=== PATIENT | female | born 1960 | race Caucasian/White ===

== ENCOUNTER → 2016-05-31 | Outpatient (CLI) | payer BC ==
[~2016-05-31] MED LIST: B-COCAP2 PO; CALCTAB5 PO; DRGTP100 TD; ESTROGEN; LRT5 PO; MNC50 PO; MULT-506 PO; TRAZ100T29 PO
== END | disposition home or self-care (01) ==
LOC: C.RDSM 15:00
PROVIDERS: ATTEND Physical Medicine & Rehabilitation Sports Medicine
DX: M25.551 Pain in right hip (principal)

== ENCOUNTER → 2016-06-07 | Outpatient (CLI) | payer BC ==
[~2016-06-07] MED LIST changes: +MAGNEVIST IV PRN
--- NOTE | 2016-06-07 12:07 | DIAGNOSTIC IMAGING REPORT ---
FLUOROSCOPIC GUIDED RIGHT HIP ARTHROGRAM FLUOROSCOPY TIME: 5 seconds. HISTORY: Right hip pain.. PROCEDURE: After obtaining written informed consent, the patient was placed supine on the fluoroscopy table. A suitable site for needle insertion was marked using fluoroscopic guidance. The right hip was prepped and draped in the usual sterile fashion. 1% lidocaine was used for skin, subcutaneous and deep soft tissue anesthesia. Under intermittent fluoroscopic guidance, a 22 gauge 3.5 inch spinal needle was inserted into the right hip joint. A total of 12 cc of one-to-one mixture of dilute Magnevist (0.1 cc in 10 cc saline) and Optiray 300 were injected. The needle was then removed. There were no apparent complications. The patient was transported to for further imaging. IMPRESSION: Fluoroscopic-guided right hip arthrogram without immediate complication. Total injected volume was 12 cc. MR portion of the examination will be dictated separately. Electronically signed by: Reece Cole M.D. 06/07/2016 12:06 PM Dictated Date/Time: 06/07/2016 12:04 PM
--- NOTE | 2016-06-07 12:30 | DIAGNOSTIC IMAGING REPORT ---
RIGHT HIP MRI with INTRA-ARTICULAR CONTRAST HISTORY: RIGHT HIP PAIN Right TECHNIQUE: Multiplanar multisequence MRI of the right hip was performed following the intra-articular injection of contrast. COMPARISON STUDY: None. FINDINGS: No fracture or dislocation within the right hip. There is focal area of full-thickness cartilage loss seen within the superolateral aspect of the acetabulum measuring up to 1.4 cm. There is also focal full-thickness cartilage loss within the superior aspect of the femoral head. Remaining portions of the hip cartilage spaces demonstrate approximately 50% thinning with a few small fissures. Marginal osteophytes inferiorly at the femoral head and acetabulum. There is subchondral cystic change and edema at the superior aspect of the acetabulum and femoral head. These findings are consistent with moderate to severe osteoarthritis. The posterior labrum appears intact. However, the superior, anterior, and inferior labrum is torn and partially macerated. Mild edema and the distal attachment of the gluteus medius tendon consistent with a mild tendinopathy. IMPRESSION: 1. Moderate to severe osteoarthritis within the right hip as described above. 2. The majority of the labrum is torn and partially macerated. 3. Mild gluteus medius tendinopathy. Electronically signed by: Reece Cole M.D. 06/07/2016 12:29 PM Dictated Date/Time: 06/07/2016 12:24 PM
== END | disposition home or self-care (01) ==
LOC: C.MRIBC 10:46
PROVIDERS: ATTEND Physical Medicine & Rehabilitation Sports Medicine
DX: M25.551 Pain in right hip (principal)

== ENCOUNTER → 2017-04-13 | Day surgery (SDC) | payer OTHER ==
[2017-03-28 09:33] VITALS: Ht 171.5 cm; Wt 61.4 kg
[~2017-04-13] VITALS: Ht 171.5 cm; Wt 61.4 kg
[~2017-04-13] MED LIST changes: -B-COCAP2 PO; +B-COTAB18 PO; +BUPIVACAINE 0.25% 2.5MG/ML PF 10 ML VIAL ONE; +CALC-393 PO; -CALCTAB5 PO; +CHOL1000 PO; -DRGTP100 TD; +DRGTP100 TOP; +EPP3/2 IM; -ESTROGEN; +HYDR-5688 PO; +IOPAMIDOL INJ 61% 15 ML VIAL ONE; +LIDOCAINE HCL 1% MPF 5 ML VIAL ONE; -LRT5 PO; +MAGN400T6 PO; -MAGNEVIST IV PRN; +MINO0.1C2 PO; -MNC50 PO; +NAPR-1169 PO; +OMEG10007 PO; +SUMA6KIT2 SQ; -TRAZ100T29 PO
--- NOTE | 2017-04-13 13:25 | History & Physical Bridge - [place] ---
H&P Re-Evaluation Bridge Note: I have examined the patient, reviewed the History & Physical and in the interval since the performance of the History & Physical I have noted the following changes of clinical significance: No changes noted
[2017-04-13 13:45] VITALS: TEMP 36.5
--- NOTE | 2017-04-13 13:51 | Discharge Instructions ---
Discharge Instructions Date of Service Apr 13, 2017. Visit Reason for Visit: Sacroiliitis Discharge Discharge Diagnosis / Problem: low back pain Discharge Goals Goal(s): Decrease discomfort, Improve function Activity Recommendations Activity Limitations: resume your previous activity Anesthesia . Post Anesthesia Instructions: If you have had General Anesthesia or IV Sedation: * Do not drive today. * Resume driving when surgeon permits. * Do not make important decisions or sign legal documents today. * Call surgeon for: 1. Temperature elevations greater than 101 degrees F. 2. Uncontrollable pain. 3. Excessive bleeding. 4. Persistent nausea and vomiting. 5. Medication intolerance (nausea, vomiting or rash). * For nausea and vomiting use only clear liquids such as: tea, soda, bouillon until nausea subsides, then gradually increase diet as tolerated. * If you have any concerns or questions, call your surgeon's office. If physician is unavailable and it is an emergency, call 911 or go to the nearest emergency room. . Diet Recommendations Recommended Home Diet: resume previous diet Procedures Procedures Performed: Right Sacroiliac Joint Injection Pending Studies Studies pending at discharge: no Medical Emergencies . Who to Call and When: Medical Emergencies: If at any time you feel your situation is an emergency, please call 911 immediately. . Non-Emergent Contact Non-Emergency issues call your: Specialist . . "Provider Documentation" section prepared by Edi Jones. .
[2017-04-13 13:58] VITALS: BP 110/68; PULSE 85; O2SAT 100
--- NOTE | 2017-04-13 14:34 | OPERATIVE REPORT ---
DATE OF OPERATION: 04/13/2017 PREOPERATIVE DIAGNOSIS: Right sacroiliitis, underlying ankylosing spondylitis. POSTOPERATIVE DIAGNOSIS: Same. PROCEDURE: Right sacroiliac joint injection under fluoroscopic guidance. SURGEON: Dr. Edi Jones. INDICATIONS: The patient is a 56-year-old white female who has sacroiliitis secondary to underlying ankylosing spondylitis. She presents today for an SI joint injection to provide her with relief of her inflammatory sacroiliitis. PHYSICAL EXAMINATION: GENERAL: Pleasant female seated comfortably. MUSCULOSKELETAL: Lumbar paraspinal muscles were palpated and noted be nontender. She had tenderness to palpation of her right SI joint, positive Kayode maneuver was noted. She had normal motor and sensory exam of her lower extremity. CONSENT: Verbal and written consent was obtained from the patient. Risks and benefits were reviewed. Risks include but are not limited to abscess and allergic reaction. The patient wishes to proceed. PROCEDURE: The patient was taken back to the special procedures room of the [facility] where she was maintained in a prone position. Backside was cleansed with Betadine x3 and a dry sterile dressing was applied. Fluoroscope was used to identify the right SI joint. The overlying skin was anesthetized with 2.5 mL of lidocaine 1% with a 25 gauge 1.5-inch needle. A 25 gauge 3.5 inch spinal needle was then directed down towards the joint. She then underwent injection after negative aspiration of 0.25 mL of Isovue 300 contrast which demonstrated intraarticular uptake. This was then followed by injection after negative aspiration of 40 mg of Depo-Medrol and 1.5 mL of bupivacaine 0.25%. Injection was well tolerated. DISPOSITION: 1. The patient is taken out into the discharge recovery area where she will be discharged home once discharge criteria have been met. 2. Follow up in the [facility] office in 2-4 weeks. I attest to the content of the Intraoperative Record and any orders documented therein. Any exception s are noted below.
== END | disposition home or self-care (01) ==
LOC: X.SURG 12:41
PROVIDERS: ATTEND Physical Medicine & Rehabilitation
DX: M46.1 Sacroiliitis, not elsewhere classified (principal)

== ENCOUNTER 2018-08-23 05:06 | Inpatient (IN) ==
--- NOTE | 2018-07-23 11:03 | Anesthesiology Consultation ---
Date of Service July 23, 2018 Assessment & Plan (1) Encounter for pre-operative examination: - S/P Right MOUNIKA= 12/26/17= SAB x 2 attempts (L3-L4) at [facility] Chart Review Chart Review: Acceptable Risk for Surgery and Patient NOT seen in Pre Admission Testing History Surgery Operation Date: 08/23/18 09:20 Proposed Procedures p Left Total Hip Replacement - Brendan Jc MD Height/Weight Height: 5 ft 6 in Weight: 58.967 kg Allergies Allergy/AdvReac Type Severity Reaction Status Date / Time bee venom protein (honey bee) Allergy Severe Swelling Verified 07/06/18 11:14 of Lip/Tongue/Throat cat dander Allergy Unknown Watery Eye Verified 07/06/18 11:14 No Known Drug Allergies Allergy Unknown Verified 07/06/18 11:14 Medications Home Medications Medication Instructions Recorded Confirmed Last Taken cholecalciferol (vitamin D3) 1,000 unit PO QAM 12/08/17 07/06/18 12/25/17 09:00 [Vitamin D3] epinephrine [EpiPen] 0.3 mg IM UD PRN 12/08/17 07/06/18 Unknown fentanyl 1 patch TRANSDERMAL Q72H 12/08/17 07/06/18 12/26/17 03:00 magnesium 400 mg PO QAM 12/08/17 07/06/18 12/25/17 09:00 minocycline 50 mg PO BID 12/08/17 07/06/18 12/25/17 09:00 multivitamin [Multiple Vitamins] 1 tab PO QAM 12/08/17 07/06/18 12/25/17 09:00 naproxen 2 tab PO UD PRN 12/08/17 07/06/18 12/12/17 09:00 omega 5-wwy-daa-fish oil [Fish Oil] 1,400 mg PO QAM 12/08/17 07/06/18 12/12/17 09:00 vitamin B complex 1 cap PO QAM 12/08/17 07/06/18 12/25/17 09:00 calcium carbonate-vitamin D3 1 cap PO BID 07/06/18 07/06/18 Unknown [Calcium 600 + D(3)] cyclobenzaprine 10 mg PO TID PRN 07/06/18 07/06/18 Unknown sumatriptan succinate [Imitrex] 1 dose SUBCUT UD PRN 07/06/18 07/06/18 Unknown Past Medical History Medical History Scoliosis "MILD" Acne ON MINOCYCLINE Chronic back pain Degenerative disc disease History of hypotension NO RECENT ISSUES Lesion of bone of right lower leg RIGHT FEMUR (BEING MONITORED BY ORTHO ONCOLOGIST) Migraine Osteoarthritis Rheumatoid arthritis Past Surgical History Surgical History History of adenoidectomy History of bilateral tubal ligation History of colonoscopy History of dilatation and curettage History of tonsillectomy History of tooth extraction History of total hip arthroplasty RT Past Anesthesia History slow to wake" with one episode (tubal ligation)- no known history of reintubation. Social History Smoking Status: Former smoker tobacco type: cigarettes Smoking End Date: QUIT 1987; <1 PPD X 5 YEARS Hx Alcohol Use: Yes Alcohol type: hard liquor alcohol intake frequency: a few times a week Hx Substance Use: No substance use type: does not use Testing Electrocardiogram Date: 11/28/17 SR with occasional PVCs at 76bpm Chest X-Ray Date: 11/28/17 Findings: + NAD lumbar spine convex. moderate stool. Cervical Spine Date: 11/28/17 No fracture or subluxation in cervical spine. Degenerative disc change noted. No evidence positional subluxation. Laboratory Results Blood Type A Positive 07/23/18 08:53 Antibody Screen NEGATIVE 07/23/18 08:53 07/23/18 WBC 3.93 (surgeon aware) H/H 13.8/41.2 PLATELETS 268 SODIUM 140 POTASSIUM 3.8 CHLORIDE 106 CO2 29 BUN 17 CREATININE 0.75 GLUCOSE 94 PT 10.7 PTT 25.9 INR 1.0 TYPE AND SCREEN A+Ab-
--- NOTE | 2018-08-16 23:26 | History and Physical Report ---
DATE OF ADMISSION: 08/23/2018 CHIEF COMPLAINT: Persistent left hip pain. HISTORY OF PRESENT ILLNESS: The patient is a 58-year-old female normally pretty active, but been debilitated by some back and hip problems for the past several years. She is now about 9 months out from right hip replacements done well from this. She has become more and more limited by left hip pain that has gradually gotten worse even over the past 6 months. She does take chronic narcotics and using a fentanyl patch due to some chronic back issues. She takes 2-4 tablets a day. The pain in her left hip has become more debilitating and she has been able to become more active with a right hip replacement. She describes groin pain and thigh pain. The more she walks, the more it hurts. She has nighttime pain. She has difficulty putting her shoes and socks on. She would like to have her left hip replaced. PAST MEDICAL HISTORY: 1. Chronic back pain, on fentanyl as well as hydrocodone. 2. History of skin cancer. 3. Heart murmur. PAST SURGICAL HISTORY: 1. Right hip replacement on 12/26/2017. 2. Tubal ligation. 3. Tonsillectomy. ALLERGIES: BEE STINGS. CURRENT MEDICINES: Include: 1. Fentanyl patch. 2. Hydrocodone 2-4 tablets a day. 3. Imitrex. 4. Minocycline. 5. Fish oil. 6. Calcium. 7. Vitamin D3. 8. B complex. 9. Magnesium. 10. Multivitamin. 11. NSAIDs intermittently. SOCIAL HISTORY: A 58-year-old female. Patient is . Only drinks per week. Does not smoke. FAMILY HISTORY: Significant heart disease. REVIEW OF SYSTEMS: Significant for chronic back pain. Denies any chest pain or shortness of breath. No history of DVT or PE. No known bleeding problems. PHYSICAL EXAMINATION: GENERAL: Pleasant thin, middle-aged female who looks to be in pretty good health. HEENT: Benign. NECK: Supple. No lymphadenopathy. LUNGS: Clear to auscultation. HEART: Regular rate and rhythm. ABDOMEN: Soft, nontender, nondistended. EXTREMITIES: Grossly neurovascularly intact except as follows: Examination of both hips reveal patient walks with slightly antalgic gait. Examination of the right hip reveals a well-healed incision. She has no pain with hip motion. She is neurologically intact. Examination of left hip reveals about 0.5 cm short in left side compared to the right. She walks with a bit of a limp. She can internally rotate to about 10 degrees. She has pain with this. Negative straight leg raise. She is neurologically intact. X-RAYS: X-ray of the left hip were reviewed. Shows advanced left hip DJD. She has cystic change of the femoral head and acetabulum. This has progressed significantly on x-ray over the past 6 months. The right hip replacement looks to be in good position. ASSESSMENT: A 58-year-old white female 9 months out from right hip replacement with advanced left hip degenerative joint disease that has gotten worse over the past 6 months. She has failed conservative treatment and would like to have her left hip replaced. She does have chronic back pain and on narcotics for that. PLAN: We will take her to the operating room and do a left total hip replacement. The risks and benefits of this procedure were explained to the patient including but not limited to DVT, PE, , infection, neurological injury, vascular injury, bleeding problem, pain, limited range of motion, stiffness, failure to relieve symptoms, incomplete relief of symptoms, need for further surgery in the future, fracture, leg length inequality, nerve palsy, persistent pain, dislocation, need for revision surgery, incomplete relief of symptoms, etc. The patient understands and desires to proceed. Informed consent was obtained. We will have to use her fentanyl patch postoperatively and write her a script for oxycodone and eventually hydrocodone after that. She did pretty well on that protocol last time. We will do the best we can to make her leg lengths equal. She is going to be discharged to home with [facility] home health program.
[2018-08-23] MEDS ORDERED: LR 60ML/HR IV SCH (06:00)
[2018-08-23] MEDS ORDERED: FAMOTIDINE 20 MG TAB PO SCH (06:00)
[2018-08-23] MEDS ORDERED: LR 500ML BOLUS, THEN 15ML/HR IV SCH (06:00)
[2018-08-23] MEDS ORDERED: CEFAZOLIN 2000MG 2,000 MG/15 ML SYR IV SCH (06:00)
[2018-08-23] MEDS ORDERED: GABAPENTIN 300 MG x 2 PO SCH (06:00)
[2018-08-23] MEDS ORDERED: OXYCODONE HCL 10 MG TABCR (OXYCONTIN) PO SCH (06:00)
[2018-08-23] MEDS ORDERED: ACETAMINOPHEN 500 MG TAB PO SCH (06:00)
[2018-08-23] MEDS ORDERED: TRANEXAMIC ACID 1,000 MG **IV Pre-op IV SCH (06:00)
[2018-08-23] MEDS ORDERED: SCOPOLAMINE 1.5 MG TDSY TD SCH (06:00)
[2018-08-23] MEDS ORDERED: METOCLOPRAMIDE HCL 10 MG TABLET PO SCH (06:00)
[2018-08-23] MEDS ORDERED: BUPIVACAINE 0.5 % 5 MG/1 ML PF 10ML VIAL ONE (06:28)
[2018-08-23] MEDS ORDERED: BACITRACIN INJ 50,000 UNIT VIAL ONE (06:35)
[2018-08-23] MEDS ORDERED: BUPIVACAINE/EPINEPHRINE 0.5% MPF 1:200,000 30 ML VIAL ONE (06:35)
[2018-08-23] MEDS ORDERED: MIDAZOLAM HCL 1 MG/ML 2ML VIAL ONE ×3 (06:42→07:33)
[2018-08-23] MEDS ORDERED: PROPOFOL IV EMULSION 10 MG/ML 20 ML VIAL IV ONE (06:42)
[2018-08-23] MEDS ORDERED: LIDOCAINE HCL 2% 2 ML VIAL/AMP(20MG/ML) INFIL ONE (06:42)
[2018-08-23] MEDS ORDERED: MoRPHine SULFATE PF 1 MG/ML 10 ML AMP/VIAL ONE (06:43)
--- NOTE | 2018-08-23 06:52 | History & Physical Bridge Note ---
Date of Service August 23, 2018 History & Physical Bridge Note I have examined the patient, reviewed the History & Physical and in the interval since the performance of the History & Physical I have noted the following changes of clinical significance: no changes noted
[2018-08-23] MEDS ORDERED: PHENYLEPHRINE 100MCG/ML 5ML SYR ONE (07:13)
[2018-08-23] MEDS ORDERED: PHENYLEPHRINE HCL 10 MG/ML VIAL ONE (07:41)
--- NOTE | 2018-08-23 08:20 | Post Operative Brief Note ---
Immediate Post Op Note v1 Date of Surgery August 23, 2018 Pre & Post Diagnosis Operation Date: 08/23/18 07:00 Pre-Op Diagnosis: Left Hip Degenerative Joint Disease Post-Op Diagnosis: Left Hip Degenerative Joint Disease Procedure Operation Date: 08/23/18 07:00 Actual Procedures p Left Total Hip Arthroplasty--Uncemented(Left) - Brendan Jc MD Surgeon Brendan Jc MD Textile Knitter Obi, PAC Estimated Blood Loss 200 Findings Consistent with Post-Op Diagnosis Fluids 1200 cc Specimens Left Femoral Head Drains Mcfarland Catheter Anesthesia Type Spinal MAC Complications none Disposition Accompanied Patient To Recovery: Yes Disposition: Recovery Room
--- NOTE | 2018-08-23 09:16 | XRay Report ---
AP PELVIS, CROSSTABLE LATERAL LEFT HIP History: Left total hip arthroplasty. Degenerative arthritis. Postop. FINDINGS: The patient is status post a left total hip arthroplasty. The hardware is intact. No fractu re or dislocation. Skin mikie are in place. Prior right total hip arthroplasty. IMPRESSION: Left total hip arthroplasty. No evidence for hardware complication. Electronically signed by: Reece Cole M.D. 08/23/2018 9:15 AM
[2018-08-23] MEDS ORDERED: NALOXONE HCL 1 MG in SODIUM CHLORIDE 0.9% 1000ML 1,000 ML IV PRN (10:07)
[2018-08-23] MEDS ORDERED: NALBUPHINE HCL INJ 10 MG/ML AMP IV PRN (10:07)
[2018-08-23] MEDS ORDERED: DiphenhydrAMINE HCL 50 MG/ML VIAL IV PRN (10:07)
[2018-08-23] MEDS ORDERED: HYDROmorphone INJ 0.5 MG/0.5 ML SYR IV PRN (10:07)
[2018-08-23] MEDS ORDERED: MoRPHine SULFATE 2 MG/ML CARP IV PRN (10:07)
[2018-08-23] MEDS ORDERED: ePHEDrine sulfate 50 MG/ML AMP IV PRN (10:07)
[2018-08-23] MEDS ORDERED: NALOXONE HCL 0.08 MG in SYRINGE 1.8 ML IV PRN (10:07)
[2018-08-23] MEDS ORDERED: NALOXONE HCL 0.4 MG/1 ML VIAL/CARP IV PRN ×2 (10:07→10:23)
[2018-08-23] MEDS ORDERED: LACTATED RINGER'S 500 ML IV PRN (10:07)
[2018-08-23] MEDS ORDERED: MEPERIDINE HCL 25 MG/ML CARP IV PRN (10:07)
[2018-08-23] MEDS ORDERED: MoRPHine SULFATE PF 1 MG/ML 10 ML AMP/VIAL INT SPINAL ONE (10:07)
--- NOTE | 2018-08-23 10:09 | Anesthesiology Progress Note ---
Date of Service August 23, 2018 Anesthesia Post Procedure Vital Signs Vital Signs: Temp Pulse Pulse Resp BP Pulse Ox 08/23/18 10:00 36.4 C L 72 19 92/53 L 99 08/23/18 09:50 67 12 93/54 L 100 08/23/18 09:40 69 17 90/54 L 100 08/23/18 09:30 70 13 91/56 L 100 08/23/18 09:20 70 12 92/55 L 100 08/23/18 09:10 71 18 94/53 L 100 08/23/18 09:00 75 12 103/57 L 100 08/23/18 08:50 74 14 95/51 L 100 08/23/18 08:40 73 10 L 92/61 L 99 08/23/18 08:30 72 15 88/50 L 100 08/23/18 08:23 36.4 C L 74 14 101/54 L 100 08/23/18 05:42 37.1 C 78 20 110/78 100 Pain Intensity Left Hip: Pain Intensity: 3 Transfer of Care Handoff Completed per policy Notes Mental Status: alert / awake / arousable and participated in evaluation Patient Amnestic to Procedure: Yes Nausea / Vomiting: adequately controlled Pain: adequately controlled Airway Patency, RR, SpO2: stable & adequate BP & HR: stable & adequate Hydration State: stable & adequate Neuraxial Anesthesia: was administered and sensory block is resolving Anesthetic Complications: no major complications apparent
[2018-08-23] MEDS ORDERED: SODIUM CHLORIDE 0.9% 1000ML 1,000 ML IV SCH (10:15)
[2018-08-23] MEDS ORDERED: NO NARCOTICS OR SEDATIVES SCH (10:15)
[2018-08-23] MEDS ORDERED: MAGNESIUM HYDROXIDE SUSP 30 ML UDC PO PRN (10:23)
[2018-08-23] MEDS ORDERED: ALUMINUM/MAGNESIUM SUSP 30 ML UDC PO PRN (10:23)
[2018-08-23] MEDS ORDERED: EPINEPHRINE ADULT AUTO-INJECT 0.3 MG SYR IM PRN (10:23)
[2018-08-23] MEDS ORDERED: OMEGA DHA EPA FISH OIL PO SCH (10:23)
[2018-08-23] MEDS ORDERED: BISACODYL 10 MG SUPP PR PRN (10:23)
[2018-08-23] MEDS ORDERED: MULTIVITAMIN TAB PO SCH (10:23)
[2018-08-23] MEDS: DOCUSATE SODIUM 100 MG CAP PO SCH ×2 (11:07→21:28)
[2018-08-23] MEDS: MULTIVITAMIN TAB PO SCH (11:07)
[2018-08-23] MEDS: CHOLECALCIFEROL 1,000 UNITS TAB PO SCH (11:07)
[2018-08-23] MEDS: ASPIRIN 81 MG ECTAB PO SCH ×2 (11:07→21:28)
[2018-08-23] MEDS: CALCIUM 600MG + VIT D 400 IU TAB PO SCH ×2 (11:07→21:28)
[2018-08-23] MEDS: VITAMIN B COMPLEX TAB PO SCH (11:07)
[2018-08-23] MEDS: MAGNESIUM OXIDE 400 MG TAB PO SCH (11:07)
[2018-08-23] MEDS: SODIUM CHLORIDE 0.9% 1000ML 1,000 ML IV SCH ×2 (11:08→20:20)
[2018-08-23] MEDS: MINOCYCLINE~ORDER AWAITING ACTION SCH ×2 (11:08→15:52)
[2018-08-23] MEDS: CEFAZOLIN 1000MG 1,000 MG/7.5 ML SYR IV SCH ×2 (13:38→21:28)
--- NOTE | 2018-08-23 14:19 | Progress Note ---
DATE: 08/23/2018 SUBJECTIVE: A 57-year-old white female postop from a left hip replacement. She is doing well. Not having any pain yet. No chest pain or shortness of breath. Not feeling dizzy or lightheaded. OBJECTIVE: VITAL SIGNS: Temperature is 36.5. Vital signs are stable. PHYSICAL EXAMINATION: GENERAL: Reveals a pleasant, middle-aged female. She is sitting up in bed and talking to her , looks comfortable. LUNGS: Clear to auscultation. HEART: Regular rate and rhythm. ABDOMEN: Soft, nontender, nondistended. EXTREMITIES: Grossly neurovascularly intact except as follows: Examination of right lower extremity reveals the leg lengths to be equal. Dressing is clean, dry and intact. Thigh is soft and supple. She is neurologically intact. She can dorsiflex and plantarflex her foot appropriately. X-RAYS: X-rays of the left hip were reviewed from the recovery room. It shows an uncemented total hip replacement. Components looked to be in good position. No signs of problems. ASSESSMENT: A 57-year-old female postoperative from a left hip replacement, doing well. Pain is controlled. Hip is located. She is neurologically intact. PLAN: 1. DVT prophylaxis including thigh-high TEDs, SCDs, and aspirin twice a day. 2. PT/OT. Weight bear as tolerated. Left total hip protocol. 3. Pain control, doing well with current pain regimen. 4. IV antibiotics x24 hours. 5. Disposition: Plan to discharge to home with some home health once adequately recovered.
[2018-08-23] MEDS ORDERED: TRANEXAMIC ACID 1,000 MG in 0.9 % SODIUM CHLORIDE 100 ML IV SCH (14:30)
[2018-08-23] MEDS: CHECK SCOPOLAMINE PATCH PLACEMENT SCH (15:51)
--- NOTE | 2018-08-23 16:04 | Operative Report ---
DATE OF OPERATION: 08/23/2018 SURGEON: Brendan Jc MD TIP CUTTER: MAGALYS Herrera PREOPERATIVE DIAGNOSIS: Left hip degenerative joint disease. POSTOPERATIVE DIAGNOSIS: Left hip degenerative joint disease. PROCEDURE PERFORMED: Left uncemented ceramic on highly cross-linked polyethylene total hip arthroplasty. COMPLICATIONS: None. ESTIMATED BLOOD LOSS: 200 mL. FLUID REPLACEMENT: 1200 mL crystalloid fluid replacement. ANESTHESIA: Spinal. DRAINS: None. SPECIMENS: Left femoral head sent for pathology. OPERATIVE INDICATIONS: The patient is a 57-year-old female who has had a several-year history of increasing bilateral hip pain and discomfort. She had a right hip replacement done about 8 months ago and has done remarkably well from this. Over the past 6 months, she has developed increased pain and discomfort in the left hip. X-ray show a pretty significant progression of her hip arthritis. She elects to proceed with a left total hip arthroplasty. OPERATIVE FINDINGS: Operative findings revealed advanced left hip DJD. She had pretty extensive grade 4 uydy-be-hdep disease of the femoral head and acetabulum. She has cystic changes as well. A moderate sized synovitis. She had diffuse osteopenia. OPERATIVE IMPLANTS: Operative implants consisted of: 1. A Biomet G7 size 52 mm acetabular shell. 2. A 6.5 cancellous acetabular screws, 1 at 35 mm in length and 1 at 20 mm in length. 3. An apex hole eliminator. 4. A highly cross-linked polyethylene liner with a 52 mm outer diameter and 36 mm inner diameter. 5. A DePuy Corail size 12 KLA femoral stem. 6. A +5/36 mm ceramic articular ball. OPERATIVE PROCEDURE: The patient was taken to the operating room, identified and placed on the operating table in supine position. All contact areas were appropriately padded. IV antibiotics were provided by anesthesia team. A spinal anesthetic had been implemented in the holding area. Mcfarland catheter was placed in sterile fashion. The patient was then placed in the right lateral decubitus position. An axillary roll was placed. [facility] hip positioner was used for positioning. Left hip and leg were then prepped and draped in usual sterile fashion. A posterolateral approach to the left hip was then performed through a curvilinear incision centered over the greater trochanter. Sharp dissection was carried through subcutaneous tissues down to the level of the IT band and gluteal fascia. The IT band and gluteal fascia were incised longitudinally in line with skin incision. The underlying greater trochanteric bursa was excised. The piriformis and external rotators were once again quite scarred to the capsule, so the posterior capsule and external rotators were released from the posterior aspect of the femur as a single layer. Great care was taken throughout the procedure to protect the sciatic nerve at all times. Hip was internally rotated and dislocated. Femoral neck osteotomy cut was made with final cut 10 mm above the lesser trochanter. Femoral head was removed and sent for pathology. The femur was retracted anteriorly. Attention was then drawn to the acetabulum. The acetabulum labrum was excised. The pulvinar fat was excised. Sequential reaming of the acetabulum was then performed beginning with a size 45 and progressing up to 51. A 52 mm Biomet G7 acetabular shell was then placed in about 40 degrees of lateral opening and 25 degrees of anteversion. I did place a little additional anteversion in this patient's acetabulum due to her long history of back problems and stiffness. A trial liner was placed. Attention was then drawn to the femur. The proximal femur entered with a cookie cutter followed by canal finder. I broached beginning with a size 8 and progressed to a 12. We got excellent fit at 12. Calcar reamer was used to smoothen off the calcar. I then trialed the hip and the +5 articular ball provided full stability and full extension and external rotation and flexion to 90 degrees, internal rotation to over [address] I elected to place these implants. All trial implants were removed. An apex hole eliminator was placed. Highly cross-linked polyethylene liner was placed. A DePuy Corail size 12 KLA femoral stem was impacted in position. A +5/36 mm ceramic articular ball was placed. Hip was located once again and found to be stable. Attention was then drawn toward closing. The wound was irrigated with copious amounts of pulsatile lavage solution. I did inject locally with 60 mL of 0.5% Marcaine with epinephrine. Posterior capsule and external rotators were repaired as a single layer through posterior drill holes in the greater trochanter with #2 Ti-Cron suture. The IT band and gluteal fascia were then closed with #1 PDS suture in running fashion. Subcutaneous tissue was then closed with 2 layers, the deep layer of 0 Vicryl suture in a buried interrupted fashion, the subcutaneous tissue with 2-0 Dexon suture in a buried interrupted fashion. The skin was then closed with skin mikie. Leg was then cleaned and dried and a sterile dressing of Xeroform, 4 x 4's, sterile ABD pad and foam tape was applied. The patient then transferred to the recovery room in stable condition. The patient tolerated the procedure well with no complication. All needle and sponge counts were correct at the end of the operation. I attest to the content of the Intraoperative Record and any orders documented therein. Any exception s are noted below.
[2018-08-23] MEDS: FERROUS GLUCONATE 324 MG TAB PO SCH (18:20)
[2018-08-23] MEDS: ASCORBIC ACID 500 MG TAB PO SCH (18:20)
[2018-08-23] MEDS: SENNA 8.6 MG TAB PO SCH (21:28)
[2018-08-24] MEDS: CHECK SCOPOLAMINE PATCH PLACEMENT SCH (00:01)
[2018-08-24] MEDS: MINOCYCLINE~ORDER AWAITING ACTION SCH ×3 (00:02→15:14)
[2018-08-24] MEDS ORDERED: ONDANSETRON INJ 2 MG/ML 2 ML VIAL IV PRN (04:02)
[2018-08-24] MEDS ORDERED: CYCLOBENZAPRINE HCL 10 MG TAB PO PRN (04:02)
[2018-08-24] MEDS ORDERED: HYDROmorphone INJ 0.5 MG/0.5 ML SYR IV PRN (04:02)
[2018-08-24] MEDS ORDERED: OXYCODONE HCL IR 5 MG TAB (IMMEDIATE RELEASE) PO PRN (04:02)
[2018-08-24] MEDS ORDERED: DC INTRASPINAL MORPHINE SCH (04:07)
[2018-08-24] MEDS ORDERED: METOCLOPRAMIDE HCL INJ 5 MG/ML 2 ML VIAL IV PRN (04:07)
[2018-08-24] MEDS: KETOROLAC 30 MG/ML VIAL IV SCH ×3 (05:11→17:39)
[2018-08-24 05:59] LABS: Basophils # (auto) 0.01 K/uL (0-0.2); Basophils % (auto) 0.1 %; Hemoglobin 10.6 g/dL (12.0-16.0); Immature Granulocytes # (auto) 0.02 K/uL (0.00-0.02); Immature Granulocytes % (auto) 0.3 %; Lymphocytes # (auto) 0.59 K/uL (1.2-3.4); Lymphocytes % (auto) 7.8 %; Mean Corpuscular Hgb Conc 34.2 g/dL (32-36); Mean Corpuscular Volume 91.4 fL (80-100); Monocytes # (auto) 0.67 K/uL (0.11-0.59); Monocytes % (auto) 8.8 %; Platelet Count 173 K/uL (130-400); RDW Coefficient of Variation 12.6 % (11.5-14.5); RDW Standard Deviation 42.4 fL (36.4-46.3); Red Blood Count 3.39 M/uL (4.2-5.4); White Blood Count 7.59 K/uL (4.8-10.8)
[2018-08-24 06:29] LABS: BUN Creatinine Ratio 20.8 (10-20); Creatinine Clr Calc Pharmacy 94.2 ml/min; Est GFR (African American) 117.9; Est GFR (Non-African American) 101.7; Potassium 3.7 mmol/L (3.5-5.1)
--- NOTE | 2018-08-24 08:02 | Progress Note ---
DATE: 08/24/2018 SUBJECTIVE: A 57-year-old white female postop day 1 from a left hip replacement. She is doing pretty well. Pain is going to wax and wane overnight. Denies any chest pain or shortness of breath. Not feeling dizzy or lightheaded. OBJECTIVE: VITAL SIGNS: Temperature 37.4. Vital signs stable. GENERAL: Physical examination shows a pleasant, middle-aged female. She is lying in bed, looks pretty comfortable. EXTREMITIES: Examination of the left hip and leg reveals leg lengths to be equal. Dressing is clean, dry and intact. Thigh is soft and supple. She is neurologically intact. LABORATORY DATA: Hemoglobin 10.6. Hematocrit 31.0. Electrolytes are stable. ASSESSMENT: A 57-year-old white female postop day 1 from a left hip replacement, doing pretty well. Pain has been reasonably well controlled. Hip is located. She is neurologically intact. She is on chronic pain meds for her back problems and used a fentanyl patch which could make the pain control a little more difficult. PLAN: 1. DVT prophylaxis including thigh-high TEDs, SCDs, and aspirin twice a day. 2. PT/OT. Weight bear as tolerated. Left total hip protocol. 3. Pain control, doing okay with current pain regimen. We will continue using a fentanyl patch and use oxycodone to supplement this along with Tylenol and Toradol while in the hospital. She can start back on her Naprosyn when she gets home. 4. Disposition: She is planning to be discharged to home with some home health once adequately recovered. We will see how her day goes today as far as pain and mobilization.
[2018-08-24] MEDS: CALCIUM 600MG + VIT D 400 IU TAB PO SCH ×2 (08:25→21:01)
[2018-08-24] MEDS: FERROUS GLUCONATE 324 MG TAB PO SCH ×2 (08:25→17:38)
[2018-08-24] MEDS: ASPIRIN 81 MG ECTAB PO SCH ×2 (08:25→21:01)
[2018-08-24] MEDS: ASCORBIC ACID 500 MG TAB PO SCH ×2 (08:25→17:38)
[2018-08-24] MEDS: TAPENTADOL HCL ER 50 MG TABCR PO SCH ×2 (08:25→21:01)
[2018-08-24] MEDS: CHOLECALCIFEROL 1,000 UNITS TAB PO SCH (08:25)
[2018-08-24] MEDS: MAGNESIUM OXIDE 400 MG TAB PO SCH (08:25)
[2018-08-24] MEDS: VITAMIN B COMPLEX TAB PO SCH (08:25)
[2018-08-24] MEDS: MULTIVITAMIN TAB PO SCH (08:25)
[2018-08-24] MEDS: DOCUSATE SODIUM 100 MG CAP PO SCH ×2 (08:31→21:01)
[2018-08-24] MEDS ORDERED: fentaNYL 100 MCG/HR TDSY TD SCH (09:00)
--- NOTE | 2018-08-24 09:36 | Anesthesiology Progress Note ---
Date of Service August 24, 2018 Anesthesia Post Procedure Vital Signs Vital Signs: Temp Pulse Pulse Pulse Pulse Resp BP 08/24/18 07:54 36.6 C 76 21 110/72 08/24/18 07:21 08/24/18 04:21 37.4 C 08/24/18 04:05 16 08/24/18 03:17 37.8 C H 86 12 08/24/18 03:05 16 08/24/18 02:05 14 08/24/18 01:05 14 08/24/18 00:05 14 08/23/18 23:08 36.9 C 89 14 08/23/18 23:05 16 08/23/18 22:05 17 08/23/18 21:05 16 08/23/18 20:05 19 08/23/18 19:11 37.2 C 78 18 08/23/18 19:05 19 08/23/18 18:05 19 08/23/18 17:03 18 08/23/18 16:05 17 08/23/18 15:05 36.6 C 65 16 08/23/18 14:05 14 08/23/18 13:09 36.5 C 64 17 08/23/18 13:05 14 08/23/18 12:05 16 08/23/18 12:01 36.6 C 63 15 08/23/18 11:05 16 08/23/18 11:00 36.7 C 69 18 08/23/18 10:33 36.6 C 63 15 08/23/18 10:05 36.5 C 66 14 08/23/18 10:00 36.4 C L 72 19 08/23/18 09:50 67 12 08/23/18 09:40 69 17 BP Pulse Ox Pulse Ox 08/24/18 07:54 97 08/24/18 07:21 98 08/24/18 04:21 08/24/18 04:05 100 08/24/18 03:17 111/66 100 08/24/18 03:05 100 08/24/18 02:05 100 08/24/18 01:05 100 08/24/18 00:05 100 08/23/18 23:08 112/68 100 08/23/18 23:05 100 08/23/18 22:05 98 08/23/18 21:05 99 08/23/18 20:05 100 08/23/18 19:11 101/62 100 08/23/18 19:05 100 08/23/18 18:05 97 08/23/18 17:03 100 08/23/18 16:05 100 08/23/18 15:05 102/66 100 100 08/23/18 14:05 98 08/23/18 13:09 104/66 98 08/23/18 13:05 98 08/23/18 12:05 99 08/23/18 12:01 105/67 100 08/23/18 11:05 96 08/23/18 11:00 99/62 L 98 08/23/18 10:33 98/61 L 100 08/23/18 10:05 96/55 L 99 99 08/23/18 10:00 92/53 L 99 08/23/18 09:50 93/54 L 100 08/23/18 09:40 90/54 L 100 Pain Intensity Left Hip: Pain Intensity: 3 Notes Mental Status: alert / awake / arousable Patient Amnestic to Procedure: Yes Nausea / Vomiting: adequately controlled Pain: adequately controlled Airway Patency, RR, SpO2: stable & adequate BP & HR: stable & adequate Hydration State: stable & adequate Neuraxial Anesthesia: was administered and sensory block resolved Anesthetic Complications: no major complications apparent
[2018-08-24] MEDS: CHECK FENTANYL PATCH PLACEMENT SCH (15:14)
[2018-08-24] MEDS: SENNA 8.6 MG TAB PO SCH (21:01)
[2018-08-25] MEDS: KETOROLAC 30 MG/ML VIAL IV SCH ×2 (00:03→06:26)
[2018-08-25] MEDS: CHECK FENTANYL PATCH PLACEMENT SCH ×2 (00:03→08:55)
[2018-08-25] MEDS: MINOCYCLINE~ORDER AWAITING ACTION SCH ×2 (00:03→08:56)
[2018-08-25] MEDS: SUMAtriptan succinate 6 MG/0.5 ML VIAL SQ PRN ×2 (00:53→08:59)
--- NOTE | 2018-08-25 08:22 | Progress Note ---
DATE: 08/25/2018 SUBJECTIVE: A 57-year-old white female postop day 2 from left hip placement. She is doing well. Pain is controlled. Therapy went pretty well. No chest pain or shortness of breath. Not feeling dizzy or lightheaded. OBJECTIVE: VITAL SIGNS: Temperature 36.8. Vital signs stable. GENERAL: Physical examination shows a pleasant, middle-aged female. She is lying in bed, looks comfortable. EXTREMITIES: Examination of the left leg reveals leg lengths to be equal. Dressing is clean, dry and intact. Thigh is soft and supple. Hip is located. She is neurologically intact. ASSESSMENT: A 57-year-old white female postop day 2 from left replacement, doing well. Pain is controlled. Hip is located. She is neurologically intact. PLAN: 1. DVT prophylaxis including thigh-high TEDs, SCDs, and aspirin twice a day. 2. PT/OT. Weight bear as tolerated. Left total hip protocol. 3. Pain control, doing well with current pain regimen. 4. Disposition: Plan to discharge to home with some home health later today.
[2018-08-25] MEDS: FERROUS GLUCONATE 324 MG TAB PO SCH (08:59)
[2018-08-25] MEDS: CALCIUM 600MG + VIT D 400 IU TAB PO SCH (08:59)
[2018-08-25] MEDS: ASPIRIN 81 MG ECTAB PO SCH (08:59)
[2018-08-25] MEDS: CHOLECALCIFEROL 1,000 UNITS TAB PO SCH (08:59)
[2018-08-25] MEDS: VITAMIN B COMPLEX TAB PO SCH (08:59)
[2018-08-25] MEDS: TAPENTADOL HCL ER 50 MG TABCR PO SCH (08:59)
[2018-08-25] MEDS: DOCUSATE SODIUM 100 MG CAP PO SCH (08:59)
[2018-08-25] MEDS: MULTIVITAMIN TAB PO SCH (08:59)
[2018-08-25] MEDS: MAGNESIUM OXIDE 400 MG TAB PO SCH (08:59)
[2018-08-25] MEDS: ASCORBIC ACID 500 MG TAB PO SCH (08:59)
--- NOTE | 2018-08-29 16:42 | Discharge Summary ---
ADMITTING PHYSICIAN AND SURGEON: Dr. Brendan Jc. ADMITTING DIAGNOSIS: Left hip degenerative joint disease. SURGERY PERFORMED: Left total hip arthroplasty. SECONDARY DIAGNOSES: Chronic back pain, history of skin cancer, heart murmur. CONSULTS: None obtained. HISTORY AND PHYSICAL EXAMINATION: Well documented in the patient's chart. HOSPITAL COURSE: The patient was admitted on 08/23/2018 underwent total hip arthroplasty, tolerated the procedure well without complications. She was transferred to the PACU postoperatively and later to the orthopedic floor for further care. She was given Ancef for antibiotic prophylaxis, SUSAN stockings, SCDs and aspirin for DVT prophylaxis. Hemoglobin, hematocrit and vital signs were monitored during her hospital stay and remained stable. She did not require blood transfusions. There were no complications. By postoperative day 2, she was tolerating a regular diet, pain was controlled with oral pain medicine. She was participating in physical therapy. Postop day 2, she was discharged home, set up with home health services. She was given printed discharge instructions including new prescriptions for extra strength Tylenol, iron supplement and oxycodone. Continue home medicines with the exception of hydrocodone/acetaminophen, which she was told to stop. Continue physical therapy, weightbearing as tolerated, SUSAN stockings, total hip precautions. Followup in approximately 2 weeks postop or sooner if there are any problems or concerns.
== END 2018-08-25 11:09 | disposition home health service (06) | DRG 470 ==
LOC: ASU 05:06 → 3E 08:24